=== PATIENT | male | born 2000 | race Caucasian/White ===

== ENCOUNTER 2022-01-04 01:21 | Emergency (ER) | payer SELFPAY ==
[2022-01-04 01:30] VITALS: BP 120/74; PULSE 72; BMI 38.3
[2022-01-04] MEDS ORDERED: LACTATED RINGERS SOLUTION 1000 ML INFUS.BAG IV ONE (01:45)
[2022-01-04 02:35] LABS: BASO % 0.5 % (0-2.0); EOS % 2.5 % (0-4.5); HEMATOCRIT 39.8 % (35.4-49); LYMPH % 26.7 % (8-40); MCH 28.9 pg (25.7-33.7); MCHC 35.1 g/dl (32.0-35.9); MEAN CELL VOLUME 82.5 fl (80-96); MEAN PLT VOLUME 7.8 fl (7.5-11.1); NEUT % 63.3 % (42.8-82.8); PLATELET COUNT 187 10^3/uL (134-434); RBC 4.83 M/mm3 (4.00-5.60); RDW 12.8 % (11.9-15.9)
[2022-01-04 02:59] LABS: ALBUMIN 3.9 g/dl (3.4-5.0); BLOOD UREA NITROGEN 12.4 mg/dL (7-18)
[2022-01-04 03:02] LABS: CREATININE 0.9 mg/dL (0.55-1.3)
[2022-01-04 03:03] LABS: BILIRUBIN,TOTAL 0.6 mg/dL (0.2-1); TOT PROT 6.6 g/dl (6.4-8.2)
== END 2022-01-04 03:43 | disposition home or self-care (01) ==
LOC: JER 01:21
DX: F12.10 Cannabis abuse, uncomplicated (principal)
CPT/HCPCS: 36415; 71045-TC-FY; 80053; 85025; 93005; 93010; 99284-25